=== PATIENT | male | born 1945 | race Two or more races ===

== ENCOUNTER 2021-03-27 17:57 | Inpatient (IN) | payer OTHER ==
[~2021-03-27] VITALS: Ht 172.7 cm; Wt 106.7 kg
[2021-03-27 19:02] LABS: BASOPHILS % 0.5 % (0.0-2.0); EOSINOPHILS % 2.9 % (0.0-5.0); HEMATOCRIT. 36.7 % (42.0-52.0); HEMOGLOBIN. 12.2 g/dL (14.0-18.0); LYMPHOCYTES % 18.5 % (20.0-50.0); MEAN CORPUSCULAR HEMOGLOBIN 28.3 pg (28.0-32.0); MEAN CORPUSCULAR VOLUME 84.9 fL (80.0-94.0); MEAN PLATELET VOLUME 9.2 fl (7.4-10.4); MONOCYTES % 6.3 % (2.0-8.0); NEUTROPHILS % 71.8 % (40.0-76.0); PLATELET 121 x1000/uL (130-400); RED BLOOD CELL COUNT 4.33 mill/uL (4.7-6.1); RED CELL DISTRIBUTION WIDTH 17.1 % (11.6-14.6)
[2021-03-27 19:04] LABS: CLARITY URINE CLEAR (CLEAR); COLOR URINE YELLOW (YELLOW); KETONES URINE NEGATIVE (NEGATIVE); LEUKOCYTE ESTERASE URINE NEGATIVE (NEGATIVE); NITRITE URINE NEGATIVE (NEGATIVE); OCCULT BLOOD URINE NEGATIVE (NEGATIVE); PH URINE 5.5 (4.5-8.0); PROTEIN URINE NEGATIVE (NEGATIVE); SPECIFIC GRAVITY URINE 1.016 (1.005-1.030)
[2021-03-27 19:06] LABS: CHLORIDE 106 mEq/L (98-107)
[2021-03-27 19:09] LABS: INR 1.1; PROTHROMBIN TIME 11.8 sec (9.6-11.0)
[2021-03-27 19:14] LABS: *AMPHETAMINES SCREEN URINE NEGATIVE (NEGATIVE); *BARBITURATES SCREEN URINE NEGATIVE (NEGATIVE); *BENZODIAZEPINES SCREEN URINE NEGATIVE (NEGATIVE); *COCAINE SCREEN URINE NEGATIVE (NEGATIVE); METHADONE URINE SCREEN NEGATIVE (NEGATIVE)
[2021-03-27 19:15] LABS: CANNABINOID URINE SCREEN NEGATIVE (NEGATIVE); OPIATES URINE SCREEN NEGATIVE (NEGATIVE); PHENCYCLIDINE URINE SCREEN NEGATIVE (NEGATIVE)
[2021-03-27] MEDS ORDERED: HEPARIN 5000 UNITS/ML VIAL IV PRN (21:30)
[2021-03-27] MEDS ORDERED: HEPARIN 5000 UNITS/ML VIAL IV SCH (21:30)
[2021-03-27] MEDS ORDERED: HEPARIN 25,000 UNITS PREMIX 250 ML IV PRN (21:30)
[2021-03-27] MEDS ORDERED: HEPARIN BOLUS PRN aPTT <30 IV (22:00)
[2021-03-27] MEDS ORDERED: HEPARIN 25,000 UNITS PREMIX 250 ML IV SCH (22:00)
[2021-03-27] MEDS ORDERED: HEPARIN BOLUS PRN aPTT 30-44 IV (22:00)
[2021-03-27] MEDS ORDERED: IPRATROPIUM/ALBUTEROL 0.5-3(2.5)MG/3ML NEB NEB PRN (22:15)
[2021-03-27] MEDS ORDERED: MAGNESIUM/ALUMINUM HYDROXIDE/SIMETHICONE 30ML UDC PO PRN (22:15)
[2021-03-27] MEDS ORDERED: CLONIDINE 0.1MG TABLET PO PRN (22:15)
[2021-03-27] MEDS ORDERED: DOCUSATE SODIUM 100MG CAPSULE PO PRN (22:15)
[2021-03-27] MEDS ORDERED: ONDANSETRON HCL 4MG/2ML INJ IV PRN (22:15)
[2021-03-27] MEDS ORDERED: HYDROCODONE/ACETAMINOPHEN 5/325MG TABLET PO PRN (22:15)
[2021-03-27] MEDS ORDERED: ACETAMINOPHEN 325MG TABLET PO PRN (22:15)
[2021-03-27] MEDS ORDERED: HEPARIN 60 UNITS/KG BOLUS IV NR (23:00)
[2021-03-27] MEDS: METOPROLOL TARTRATE 25MG TABLET PO SCH (23:25)
[2021-03-27] MEDS: NITROGLYCERIN OINT 1GM/INCH UDPKT TD SCH (23:26)
[2021-03-27] MEDS: ATORVASTATIN CALCIUM 40MG TABLET PO SCH (23:43)
[2021-03-28] VITALS (11 sets, daily range): BP systolic 104–150; BP diastolic 64–84
[2021-03-28 03:56] LABS: BASOPHILS % 0.3 % (0.0-2.0); EOSINOPHILS % 2.5 % (0.0-5.0); HEMATOCRIT. 39.8 % (42.0-52.0); HEMOGLOBIN. 12.9 g/dL (14.0-18.0); LYMPHOCYTES % 17.9 % (20.0-50.0); MEAN CORPUSCULAR HEMOGLOBIN 27.3 pg (28.0-32.0); MEAN CORPUSCULAR VOLUME 84.4 fL (80.0-94.0); MEAN PLATELET VOLUME 9.4 fl (7.4-10.4); MONOCYTES % 5.5 % (2.0-8.0); NEUTROPHILS % 73.8 % (40.0-76.0); PLATELET 137 x1000/uL (130-400); RED BLOOD CELL COUNT 4.72 mill/uL (4.7-6.1); RED CELL DISTRIBUTION WIDTH 16.8 % (11.6-14.6)
[2021-03-28 04:10] LABS: CREATINE KINASE MB FRACTION 1.7 ng/mL (0.5-3.6)
[2021-03-28] MEDS ORDERED: FAMO-135 MT (05:24)
[2021-03-28] MEDS ORDERED: ASPI-1497 MT (05:24)
[2021-03-28] MEDS ORDERED: ATOR20TA MT (05:24)
[2021-03-28] MEDS: NITROGLYCERIN OINT 1GM/INCH UDPKT TD SCH ×3 (06:38→17:05)
[2021-03-28] MEDS: METOPROLOL TARTRATE 25MG TABLET PO SCH ×2 (09:26→20:40)
[2021-03-28] MEDS: ASPIRIN 81MG EC TABLET PO SCH (09:26)
[2021-03-28] MEDS ORDERED: POTASSIUM CHLORIDE 20MEQ TABLET SR PO NR (16:00)
[2021-03-28 16:23] LABS: CREATINE KINASE MB FRACTION 1.1 ng/mL (0.5-3.6)
[2021-03-28] MEDS: ATORVASTATIN CALCIUM 40MG TABLET PO SCH (20:39)
[2021-03-28] MEDS: HEPARIN 25,000 UNITS PREMIX 250 ML IV SCH (22:32)
[2021-03-29] VITALS (12 sets, daily range): BP systolic 104–133; BP diastolic 59–88
[2021-03-29] MEDS: NITROGLYCERIN OINT 1GM/INCH UDPKT TD SCH ×5 (06:06→23:35)
[2021-03-29] MEDS: METOPROLOL TARTRATE 25MG TABLET PO SCH ×2 (08:09→20:53)
[2021-03-29] MEDS: ASPIRIN 81MG EC TABLET PO SCH (08:09)
[2021-03-29] MEDS: ATORVASTATIN CALCIUM 40MG TABLET PO SCH (20:53)
[2021-03-29] MEDS: HEPARIN 25,000 UNITS PREMIX 250 ML IV SCH (23:22)
[2021-03-30] VITALS (12 sets, daily range): BP systolic 101–136; BP diastolic 61–94
[2021-03-30] MEDS: NITROGLYCERIN OINT 1GM/INCH UDPKT TD SCH ×3 (05:48→18:09)
[2021-03-30 07:00] LABS: BASOPHILS % 0.2 % (0.0-2.0); EOSINOPHILS % 1.8 % (0.0-5.0); HEMATOCRIT. 35.7 % (42.0-52.0); HEMOGLOBIN. 11.8 g/dL (14.0-18.0); LYMPHOCYTES % 21.2 % (20.0-50.0); MEAN CORPUSCULAR HEMOGLOBIN 28.4 pg (28.0-32.0); MEAN CORPUSCULAR VOLUME 85.7 fL (80.0-94.0); MEAN PLATELET VOLUME 9.4 fl (7.4-10.4); MONOCYTES % 6.7 % (2.0-8.0); NEUTROPHILS % 70.1 % (40.0-76.0); PLATELET 147 x1000/uL (130-400); RED BLOOD CELL COUNT 4.17 mill/uL (4.7-6.1); RED CELL DISTRIBUTION WIDTH 16.8 % (11.6-14.6)
[2021-03-30 07:05] LABS: CHLORIDE 106 mEq/L (98-107)
[2021-03-30] MEDS: METOPROLOL TARTRATE 25MG TABLET PO SCH ×2 (09:35→20:38)
[2021-03-30] MEDS: ASPIRIN 81MG EC TABLET PO SCH (09:35)
[2021-03-30] MEDS ORDERED: METOPROLOL TARTRATE 25MG TABLET PO NR (11:30)
[2021-03-30] MEDS: ATORVASTATIN CALCIUM 40MG TABLET PO SCH (20:37)
== END 2021-03-30 21:48 | disposition short-term general hospital (02) | DRG 281 ==
LOC: ER 17:57 → 3WST 20:07 → ENRESERV 03-28 04:24
PROVIDERS: ADMIT Internal Medicine; ATTEND Internal Medicine
DX: I21.4 Non-ST elevation (NSTEMI) myocardial infarction (principal); I50.30 Unspecified diastolic (congestive) heart failure; I11.0 Hypertensive heart disease with heart failure; K27.9 Peptic ulcer, site unspecified, unspecified as acute or chronic, without hemorrhage or perforation; R13.10 Dysphagia, unspecified; E66.9 Obesity, unspecified; R55 Syncope and collapse; R06.00 Dyspnea, unspecified; G44.009 Cluster headache syndrome, unspecified, not intractable; M17.0 Bilateral primary osteoarthritis of knee; G58.9 Mononeuropathy, unspecified; R35.1 Nocturia; J32.9 Chronic sinusitis, unspecified; Z82.49 Family history of ischemic heart disease and other diseases of the circulatory system; Z86.73 Personal history of transient ischemic attack (TIA), and cerebral infarction without residual deficits; Z87.891 Personal history of nicotine dependence; Z88.8 Allergy status to other drugs, medicaments and biological substances; I25.2 Old myocardial infarction; Z68.35 Body mass index [BMI] 35.0-35.9, adult
CPT/HCPCS: 36415; 71045; 80053; 80061; 80305; 81003; 82550; 82553; 83735; 83880; 84484; 85025; 93005; 93306; 99291; J1644

== ENCOUNTER 2021-06-11 20:44 | Inpatient (IN) | payer OTHER ==
[~2021-06-11] VITALS: Ht 177.8 cm; Wt 94.4 kg
[~2021-06-11 20:44] MED LIST: ASPI-1497 MT; ATOR20TA MT; FAMO-135 MT
[2021-06-11] MEDS ORDERED: ASPIRIN 81MG TABLET PO ONE (21:15)
[2021-06-11 21:43] LABS: BASOPHILS % 0.6 % (0.0-2.0); EOSINOPHILS % 6.4 % (0.0-5.0); HEMATOCRIT. 33.3 % (42.0-52.0); HEMOGLOBIN. 10.6 g/dL (14.0-18.0); LYMPHOCYTES % 15.9 % (20.0-50.0); MEAN CORPUSCULAR HEMOGLOBIN 25.1 pg (28.0-32.0); MEAN CORPUSCULAR VOLUME 79.2 fL (80.0-94.0); MEAN PLATELET VOLUME 8.4 fl (7.4-10.4); MONOCYTES % 5.9 % (2.0-8.0); NEUTROPHILS % 71.2 % (40.0-76.0); PLATELET 234 x1000/uL (130-400); RED BLOOD CELL COUNT 4.21 mill/uL (4.7-6.1); RED CELL DISTRIBUTION WIDTH 16.4 % (11.6-14.6)
[2021-06-11 21:48] LABS: CHLORIDE 105 mEq/L (98-107)
[2021-06-12] VITALS (12 sets, daily range): BP systolic 98–142; BP diastolic 66–92
[2021-06-12] MEDS ORDERED: HEPARIN 5000 UNITS/ML VIAL IV PRN ×2 (00:45)
[2021-06-12 01:12] LABS: INR 1.1
[2021-06-12] MEDS ORDERED: NITROGLYCERIN 0.4MG TABLET SL SL SCH (01:45)
[2021-06-12] MEDS: HEPARIN 25,000 UNITS PREMIX 250 ML IV PRN (01:52)
[2021-06-12] MEDS ORDERED: HEPARIN 5000 UNITS/ML VIAL IV SCH (02:00)
[2021-06-12] MEDS ORDERED: ACETAMINOPHEN 325MG TABLET PO PRN (09:30)
[2021-06-12] MEDS ORDERED: ONDANSETRON HCL 4MG/2ML INJ IV PRN (09:30)
[2021-06-12] MEDS ORDERED: HEPARIN 25,000 UNITS PREMIX 250 ML IV SCH (10:15)
[2021-06-12] MEDS ORDERED: FUROSEMIDE 40MG/4ML VIAL IVP SCH (11:00)
[2021-06-12] MEDS: SPIRONOLACTONE 25MG TABLET PO SCH (12:56)
[2021-06-12] MEDS: METOPROLOL TARTRATE 25MG TABLET PO SCH ×2 (12:57→23:25)
[2021-06-12] MEDS: ASPIRIN 81MG TABLET PO SCH (12:57)
[2021-06-12] MEDS: ISOSORBIDE DINITRATE 10MG TABLET PO SCH ×2 (12:57→17:00)
[2021-06-12] MEDS: FUROSEMIDE 40MG/4ML VIAL IVP SCH ×2 (12:58→17:57)
[2021-06-12] MEDS: ATORVASTATIN CALCIUM 40MG TABLET PO SCH (20:54)
[2021-06-12] MEDS: NITROGLYCERIN 0.4MG TABLET SL SL PRN (21:13)
[2021-06-12] MEDS ORDERED: MORPHINE SULFATE 2 MG/ML CPJ (NOT FOR IM USE) IV PRN (21:15)
[2021-06-13] VITALS (15 sets, daily range): BP systolic 101–128; BP diastolic 63–85
[2021-06-13] MEDS: HEPARIN 25,000 UNITS PREMIX 250 ML IV PRN (02:09)
[2021-06-13 05:45] LABS: BASOPHILS % 0.2 % (0.0-2.0); EOSINOPHILS % 4.9 % (0.0-5.0); HEMATOCRIT. 33.8 % (42.0-52.0); HEMOGLOBIN. 10.9 g/dL (14.0-18.0); LYMPHOCYTES % 20.1 % (20.0-50.0); MEAN CORPUSCULAR HEMOGLOBIN 25.3 pg (28.0-32.0); MEAN CORPUSCULAR VOLUME 78.4 fL (80.0-94.0); MEAN PLATELET VOLUME 8.7 fl (7.4-10.4); MONOCYTES % 6.4 % (2.0-8.0); NEUTROPHILS % 68.4 % (40.0-76.0); PLATELET 234 x1000/uL (130-400); RED BLOOD CELL COUNT 4.31 mill/uL (4.7-6.1); RED CELL DISTRIBUTION WIDTH 16.8 % (11.6-14.6)
[2021-06-13 05:57] LABS: CHLORIDE 103 mEq/L (98-107)
[2021-06-13] MEDS: FUROSEMIDE 40MG/4ML VIAL IVP SCH ×2 (06:04→18:38)
[2021-06-13 07:34] LABS: *AMPHETAMINES SCREEN URINE NEGATIVE (NEGATIVE); *BARBITURATES SCREEN URINE NEGATIVE (NEGATIVE); *BENZODIAZEPINES SCREEN URINE NEGATIVE (NEGATIVE); *COCAINE SCREEN URINE NEGATIVE (NEGATIVE); METHADONE URINE SCREEN NEGATIVE (NEGATIVE); OPIATES URINE SCREEN NEGATIVE (NEGATIVE)
[2021-06-13 07:35] LABS: CANNABINOID URINE SCREEN NEGATIVE (NEGATIVE); PHENCYCLIDINE URINE SCREEN NEGATIVE (NEGATIVE)
[2021-06-13] MEDS: ASPIRIN 81MG TABLET PO SCH (10:06)
[2021-06-13] MEDS: SPIRONOLACTONE 25MG TABLET PO SCH (10:07)
[2021-06-13] MEDS: METOPROLOL TARTRATE 25MG TABLET PO SCH ×2 (10:07→21:00)
[2021-06-13] MEDS: ISOSORBIDE DINITRATE 10MG TABLET PO SCH ×3 (10:07→17:00)
[2021-06-13] MEDS: ATORVASTATIN CALCIUM 40MG TABLET PO SCH (21:25)
[2021-06-14] VITALS: BP 125/79
[2021-06-14] MEDS: NITROGLYCERIN 0.4MG TABLET SL SL PRN ×2 (00:38→02:20)
[2021-06-14 02:19] VITALS: BP 136/82
[2021-06-14 04:00] VITALS: BP 128/81
[2021-06-14 06:00] VITALS: BP 122/73
[2021-06-14] MEDS: HEPARIN 25,000 UNITS PREMIX 250 ML IV PRN (06:03)
[2021-06-14] MEDS: FUROSEMIDE 40MG/4ML VIAL IVP SCH (06:20)
[2021-06-14 08:00] VITALS: BP 121/84
[2021-06-14] MEDS: ASPIRIN 81MG TABLET PO SCH (08:48)
[2021-06-14] MEDS: SPIRONOLACTONE 25MG TABLET PO SCH (08:49)
[2021-06-14] MEDS: METOPROLOL TARTRATE 25MG TABLET PO SCH (08:49)
[2021-06-14] MEDS: ISOSORBIDE DINITRATE 10MG TABLET PO SCH (08:49)
== END 2021-06-14 09:50 | disposition short-term general hospital (02) | DRG 280 ==
LOC: ER 20:44 → ENRESERV 06-12 07:54 → 3WST 06-12 09:59
PROVIDERS: ADMIT Internal Medicine; ATTEND Internal Medicine
DX: I21.4 Non-ST elevation (NSTEMI) myocardial infarction (principal); I50.33 Acute on chronic diastolic (congestive) heart failure; E43 Unspecified severe protein-calorie malnutrition; E66.9 Obesity, unspecified; E78.5 Hyperlipidemia, unspecified; I11.0 Hypertensive heart disease with heart failure; I25.110 Atherosclerotic heart disease of native coronary artery with unstable angina pectoris; E78.00 Pure hypercholesterolemia, unspecified; Z20.822 Contact with and (suspected) exposure to COVID-19; D64.9 Anemia, unspecified; I25.2 Old myocardial infarction; Z95.1 Presence of aortocoronary bypass graft; Z79.899 Other long term (current) drug therapy; Z88.8 Allergy status to other drugs, medicaments and biological substances; Z79.82 Long term (current) use of aspirin; Z71.3 Dietary counseling and surveillance; Z68.29 Body mass index [BMI] 29.0-29.9, adult
CPT/HCPCS: 36415; 71045; 80048; 80053; 80305; 83880; 84484; 85025; 87426; 93005; 93306; 99291; J1644; J1940

== ENCOUNTER 2023-08-06 22:10 | Emergency (ER) | payer OTHER ==
[~2023-08-06] VITALS: Ht 188 cm; Wt 100.0 kg
[2023-08-06] MEDS ORDERED: IPRATROPIUM BROMIDE (0.02%) 0.5MG/2.5ML NEB HHN STA (22:16)
[2023-08-06 22:34] LABS: BASOPHILS % 0.1 % (0.0-2.0); DIFFERENTIAL COMMENT 0; EOSINOPHILS % 0.9 % (0.0-5.0); HEMATOCRIT. 39.1 % (42.0-52.0); HEMOGLOBIN. 11.8 g/dL (14.0-18.0); LYMPHOCYTES % 20.4 % (20.0-50.0); MEAN CORPUSCULAR HEMOGLOBIN 23.7 pg (28.0-32.0); MEAN CORPUSCULAR HGB CONC 30.3 g/dL (31.0-37.0); MEAN CORPUSCULAR VOLUME 78.2 fL (80.0-94.0); MEAN PLATELET VOLUME 8.4 fl (7.4-10.4); MONOCYTES % 7.7 % (2.0-8.0); NEUTROPHILS % 70.9 % (40.0-76.0); PLATELET 236 x1000/uL (130-400); RED CELL DISTRIBUTION WIDTH 18.9 % (11.6-14.6); WHITE BLOOD COUNT 9.1 x1000/uL (4.5-11.0)
[2023-08-06 22:40] LABS: CHLORIDE 102 mEq/L (98-107); INDEX HEMOLYSI 1 (1-3); INDEX ICTERIC 1 (1-4); INDEX LIPEMIC 1 (1-3); POTASSIUM 3.5 mEq/L (3.5-5.1); SODIUM 138 mEq/L (136-145)
[2023-08-06 22:43] LABS: INR 1.2; PARTIAL THROMBOPLASTIN TIME 32.8 sec (23.4-31.0); PROTHROMBIN TIME 12.4 sec (9.6-11.0)
[2023-08-06 22:46] LABS: ALANINE AMINOTRANSFERASE 15 IU/L (13-61); ALBUMIN 2.7 g/dL (3.4-5.0); ASPARTATE AMINOTRANSFERASE 17 IU/L (15-37); BILIRUBIN TOTAL 0.3 mg/dL (0.1-1.0); CALCIUM 8.4 mg/dL (8.5-10.1); CARBON DIOXIDE 33 mEq/L (21-32); CREATININE 1.2 mg/dL (0.6-1.3); GLUCOSE 125 mg/dL (70-105); PROTEIN TOTAL 8.4 g/dL (6.0-8.3); UREA NITROGEN BLOOD 18 mg/dL (7-21)
[2023-08-06 22:49] LABS: TROPONIN I HIGH SENSITIVITY 20 ng/L (<78)
[2023-08-07] MEDS: ALBUTEROL (0.083%) 2.5MG/3ML NEB HHN SCH ×3 (00:45→01:40)
[2023-08-07 00:46] VITALS: PULSE 88; RESP 26; O2SAT 97
[2023-08-07 00:53] LABS: TROPONIN I HIGH SENSITIVITY 24 ng/L (<78)
[2023-08-07] MEDS ORDERED: MAGNESIUM/ALUMINUM HYDROXIDE/SIMETHICONE 30ML UDC PO ONE (01:00)
[2023-08-07] MEDS ORDERED: FAMOTIDINE 20MG TABLET PO ONE (01:00)
[2023-08-07 01:28] VITALS: PULSE 89; RESP 31; O2SAT 98
[2023-08-07 01:40] VITALS: PULSE 87; RESP 24; O2SAT 98
[2023-08-07 02:15] VITALS: BP 102/62; PULSE 94; RESP 19; TEMP 98.6
== END 2023-08-07 03:17 | disposition short-term general hospital (02) ==
LOC: ER 22:10
DX: R06.02 Shortness of breath (principal); E78.00 Pure hypercholesterolemia, unspecified; Z98.890 Other specified postprocedural states
CPT/HCPCS: 36415; 71045; 80053; 82803; 84484; 85025; 93005; 94640; 99285